=== PATIENT | female | born 1970 | race American Indian/Alaskan Native ===

== ENCOUNTER 2016-10-13 08:41 | Outpatient (CLI) | payer BC | END 2016-10-13 19:04 | disposition home or self-care (01) | LOC: MAMMO 08:41 | DX: Z12.31 Encounter for screening mammogram for malignant neoplasm of breast (principal) | CPT/HCPCS: G0202-TC ==

== ENCOUNTER 2017-03-09 17:36 | Outpatient (CLI) | payer BC | END 2017-03-09 18:52 | disposition short-term general hospital (02) | LOC: AMB 17:36 | DX: I50.31 Acute diastolic (congestive) heart failure (principal); R07.89 Other chest pain | CPT/HCPCS: A0425; A0427 ==

== ENCOUNTER 2017-08-03 15:58 | Emergency (ER) | payer BC ==
[~2017-08-03] VITALS: Ht 167.6 cm; Wt 96.2 kg
[2017-08-03 16:16] VITALS: TEMP 98.7
[2017-08-03 17:00] VITALS: BP 126/84
== END 2017-08-03 17:02 | disposition home or self-care (01) ==
LOC: ED 15:58
DX: S90.32XA Contusion of left foot, initial encounter (principal); W17.89XA Other fall from one level to another, initial encounter; Y92.098 Other place in other non-institutional residence as the place of occurrence of the external cause
CPT/HCPCS: 99283

== ENCOUNTER 2019-04-09 19:14 | Emergency (ER) | payer BC ==
[~2019-04-09] VITALS: Ht 170.2 cm; Wt 93.0 kg
[2019-04-09 21:25] VITALS: BP 156/90; TEMP 99.3
== END 2019-04-09 21:25 | disposition home or self-care (01) ==
LOC: ED 19:14
DX: J11.1 Influenza due to unidentified influenza virus with other respiratory manifestations (principal); F17.210 Nicotine dependence, cigarettes, uncomplicated
CPT/HCPCS: 87502; 87651; 99283

== ENCOUNTER 2021-12-07 12:51 | Emergency (ER) | payer OTHER ==
[~2021-12-07] VITALS: Ht 170.2 cm; Wt 93.0 kg
[2021-12-07 12:56] VITALS: TEMP 98.8
[2021-12-07 13:48] LABS: PLATELET COUNT 221 K/uL (152-353)
[2021-12-07 14:56] LABS: POTASSIUM 3.9 mmol/L (3.6-5.2)
[2021-12-07 15:09] VITALS: BP 123/79
[2021-12-07] MEDS ORDERED: ANTIVERT25 M1 PO (15:09)
[2021-12-07] MEDS ORDERED: ONDA4TAB3 PO (15:09)
== END 2021-12-07 15:17 | disposition home or self-care (01) ==
LOC: ED 12:51
PROVIDERS: Emergency Medicine Emergency Medical Services
DX: H83.03 Labyrinthitis, bilateral (principal)
CPT/HCPCS: 80053; 81002; 83735; 84484; 85027; 93005; 96360; 96374; 99284; J2405